=== PATIENT | male | born 1965 | race Caucasian/White ===

== ENCOUNTER 2021-03-21 12:12 | Inpatient (IN) ==
[2021-03-21 13:33] LABS: BASOPHILS % (AUTO) 0.4 % (0.2-1.0); EOSINOPHILS # (AUTO) 0.2 x10^3/uL (0.0-0.2); EOSINOPHILS % (AUTO) 1.5 % (0.9-2.9); HEMATOCRIT 37.4 % (42.0-54.0); LYMPHOCYTES # (AUTO) 1.9 X10^3/uL (1.3-2.9); MEAN CORPUSCULAR HEMOGLOBIN 30.9 pg (27.0-34.0); MEAN CORPUSCULAR HGB CONC 34.8 g/dL (33.0-35.0); MEAN CORPUSCULAR VOLUME 88.6 fL (80.0-100.0); MEAN PLATELET VOLUME 7.1 fL (7.4-11.0); MONOCYTES # (AUTO) 0.7 x10^3/uL (0.3-0.8); MONOCYTES % (AUTO) 5.5 % (0.0-13.0); NEUTROPHILS # (AUTO) 9.3 x10^3/uL (2.2-4.8); NEUTROPHILS % (AUTO) 76.6 % (42.0-75.0); PLATELET COUNT 434 X10^3/uL (150.0-450.0); RED BLOOD COUNT 4.22 X10^6/uL (4.7-6.0); RED CELL DISTRIBUTION WIDTH 13.5 % (11.6-16.5); WHITE BLOOD COUNT 12.1 X10^3/uL (3.6-10.0)
[2021-03-21 13:40] LABS: BLOOD UREA NITROGEN 14 mg/dL (7-18); CALCIUM 8.9 mg/dL (8.5-10.1); CARBON DIOXIDE 25.8 mmol/L (21-32); CHLORIDE 94 mmol/L (98-107); CREATININE 0.93 mg/dL (0.70-1.30); SODIUM 131 mmol/L (136-145); eGFR NON BLACK RACES > 60 (>60)
[2021-03-21] MEDS ORDERED: NS 100 ML IV 100 ML ONE (14:03)
[2021-03-21] MEDS: LR 1000 ML IV 1,000 ML IV SCH (15:37)
[2021-03-21] MEDS: ZOSYN VIAL 3.375 GRAMS 3.375 G in NS 100 ML IV + SPIKE MINIBAG* 100 ML IV SCH ×3 (15:37→21:46)
--- NOTE | 2021-03-21 16:09 | CT ---
CT angiogram abdomen and pelvis with and without contrastCT angiogram bilateral lower extremity dinah with and without contrast runoffIndication: Left foot gangreneTECHNIQUEHelical images through the abdomen, pelvis and bilateral lower extremities before and after IV contrast per protocol. Coronal and sagittal reformats provided. MIP images provided.FINDINGS: Left foot great toe MTP joint DJD and advanced midfoot DJD with postsurgical change from tibiotalar effusion noted. Mild spine degenerative changes noted, with disc bulge at L1-L2 causing at least moderate spinal canal stenosis.Limited images through the lower chest show coronary calcifications.Noncontrast imaging: Aortic and branch vessel plaque noted with bilateral aortoiliac stents noted. Solid organs appear normal on noncontrast imaging.Postcontrast imaging: Abdomen: The liver, gallbladder, spleen, pancreas and adrenal glands are normal. Small duodenal diverticulum noted.Kidneys show no hydroureteronephrosis. The stomach and small bowel are normal. There is no acute colonic abnormality identified. Appendix not convincingly demonstrated.Pelvis: Urinary bladder, rectum and prostate gland are normal.Lower extremity soft tissues demonstrate no large peripherally enhancing collection, with ankle joint DJD partially visualized on the left greater than right. [id number] imaging is limited for further characterization, but appears to be gas at the tibiotalar joint medially on coronal image 50 of series 9 and correlate clinically for signs of infection. Lateral malleolus approaches the skin on coronal image 61 without specific evidence of osteomyelitis, but correlate clinically for developing ulcer.Angiogram: Lower thoracic aorta shows scattered calcifications without aneurysm. There is probably 75 percent or greater stenosis of the celiac axis on sagittal image 49 and axial image 24. SMA is patent at the origin with few scattered calcifications.Right renal artery is patent with mild plaque at their origin, probably less than 50 percent stenosis.Two accessory right mid and lower pole renal artery seen on coronal image 37-40, generally patent. Left main renal artery is patent at the origin with about 20 percent narrowing from plaque.The MEENAKSHI is patent.Infrarenal abdominal aortic is moderately narrowed due to soft and calcified plaque.Patent bilateral iliac stents are noted on axial images 62-76. The right iliac stent appears grossly patent, with minimal narrowing at the origin on coronal image 40. The external iliac artery is patent. Plaque is seen at the right internal iliac artery origin, possibly nearly completely occluded on axial images 75 and coronal images 40 and 41.The left iliac stent is patent and with the left external iliac artery. The left common iliac stent terminates above the bifurcation, with moderate plaque seen below the stent, causing probably 50-70 percent narrowing on axial image 79. Greater than 50 percent narrowing of the proximal internal iliac artery is likely.Right lower extremity: The right common femoral artery and profunda branches are patent. The superficial femoral artery is patent. The popliteal artery is patent. The anterior tibial artery, posterior tibial artery and peroneal trunk are patent with three-vessel runoff to the ankle. Dorsalis pedis and plantar arch are patent.Left lower extremity: The left common femoral artery shows scattered calcifications with about 30 percent narrowing on axial image 121. Profunda branches are patent. Scattered calcifications are seen in the proximal left SFA with probably 50 percent narrowing on axial image 127. Below this level, the SFA is generally patent, with scattered plaque seen just above the popliteal artery causing probably 50 percent narrowing on axial image 223. Popliteal artery is patent. Anterior tibial artery and posterior tibial arteries are patent. Peroneal trunk is patent. Posterior tibial artery provides flow to the plantar arch. Dorsalis pedis may be occluded on axial image 164, with distal flow to the dorsal foot provided via plantar arch collaterals.There is soft tissue swelling and edema over the foot dorsally and laterally.Impression:1. Scattered aortoiliac plaque with left common femoral artery and superficial femoral artery narrowing as above. The dorsalis pedis the left foot may be occluded just below the ankle with posterior tibial artery providing good flow to the plantar arch and collateral vessel providing flow dorsally to the left foot.2. Bilateral iliac stents, with probable significant stenosis at the distal left common iliac artery just above the bifurcation.3. Nearly occluded right internal iliac artery.4. Stenotic celiac axis, with other vessel narrowings as above.5. No acute intra-abdominal or pelvic abnormality.6. Soft tissue swelling about the left foot and postsurgical/degenerative change of the ankle with gas seen at the tibiotalar joint. Infection is not excluded. Further radiographic and dedicated foot imaging is recommended to better evaluate.Electronically signed by: RAQUEL SCHROEDER (Mar 21, 2021 16:06:59)
[2021-03-21 16:36] VITALS: BMI 24.3
[2021-03-21] MEDS: LOPID PO SCH (17:04)
[2021-03-21] MEDS: SNACK - Diabetic Appropriate PO SCH (19:22)
[2021-03-21] MEDS: HumuLIN R SUBCUT PRN (20:25)
[2021-03-22] MEDS: LR 1000 ML IV 1,000 ML IV SCH ×2 (03:15→14:58)
[2021-03-22] MEDS: LOPID PO SCH ×2 (05:37→17:16)
[2021-03-22] MEDS: ZOSYN VIAL 3.375 GRAMS 3.375 G in NS 100 ML IV + SPIKE MINIBAG* 100 ML IV SCH ×3 (05:37→21:35)
[2021-03-22] MEDS ORDERED: ZESTRIL TAB 20 MG ONE ×2 (08:57→20:35)
[2021-03-22] MEDS ORDERED: ZESTRIL TAB 20 MG PO SCH (09:00)
[2021-03-22] MEDS: ASPIRIN EC 81 MG PO SCH (09:02)
[2021-03-22] MEDS: LIPITOR TAB 80 MG PO SCH (09:03)
[2021-03-22] MEDS: NORVASC TAB 5 MG PO SCH (09:03)
[2021-03-22] MEDS: TOPROL XL PO SCH (09:03)
[2021-03-22] MEDS: PERCOCET TAB 5/325 MG PO PRN ×3 (09:06→21:35)
--- NOTE | 2021-03-22 11:33 | DR.CONSULT ---
CONSULT Consultation for Day of: Date: 03/22/21 Chief Complaint Chief Complaint: Left foot gangrene Allergies Allergies Allergy/AdvReac Type Severity Reaction Status Date / Time codeine Allergy Unknown Verified 03/21/21 13:22 History of Present Illness History of Present Illness: Mr. Dorsey is a 55 year old male who is known to our practice. He has a Hx of PVD and prior vascular procedures in [place]. 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 He has minimal pain today. Patient has also been seen by Dr. Lord. Patient also with a Hx of smoking 1/2 pack a day. He denies any f/c/n/v/sob/calf pain. Past Surgical History Surgical History: Angioplasty/Stents, Ortho Surgery and Other Family History Family Medical History: Diabetes Mellitus and [place] Social History Does patient currently use any type of tobacco product: Yes Have you used tobacco products in the last 12 months: Yes Type of Tobacco Use: Cigarettes How many years tobacco product used: 40 Packs per day or dips/chews per day: 1/2 Does any household member use tobacco: No Alcohol Use: None Drug Use: None Medications Home Medications: codeine Allergy (Unknown, Verified 03/21/21 13:22) CONTINUE taking the following medications amlodipine 5 mg PO DAILY 03/21/21 [History] amoxicillin-pot clavulanate 1 tab PO BID 03/21/21 [History] aspirin 81 mg PO DAILY 03/21/21 [History] atorvastatin 80 mg PO DAILY 03/21/21 [History] clopidogrel 75 mg PO DAILY 03/21/21 [History] gemfibrozil 600 mg PO BID 03/21/21 [History] lisinopril 20 mg PO BID 03/21/21 [History] oxycodone-acetaminophen 1 tab PO Q6H PRN 03/21/21 [History] tizanidine 4 mg PO HS 03/21/21 [History] tramadol 50 mg PO Q8H PRN 03/21/21 [History] Physical Exam Vital Signs: Temperature 98.3 F Pulse Rate [Right Brachial] 66 Respiratory Rate 20 Blood Pressure [Right Arm] 159/71 O2 Sat by Pulse Oximetry 98 Plan (1) PVD (peripheral vascular disease): Status: Acute Plan: Mr. Dorsey is a 55 year old male with PVD. Left foot with dry gangrene. Stable and dry. CTA with evidence of vascular disease. He is with VSS and NAD. Plan: WB as tolerated on the left Continue with betadine paint to the left foot. Vascular following appreciated recs. Discussed with Dr. Lord. Tentative plan for TMA later in the week Will monitor. Please do not hesitate to contact me with questions or concerns. Ky Baldwin, [facility] [phone]
--- NOTE | 2021-03-22 15:52 | NOTE.SOAP ---
Soap Note Note for Day of Date of Exam: 03/21/21 Subjective Data Subjective Data: Patient had acute ischemic left leg approximately 2 weeks ago who had treatment 1 week ago with b/l iliac stenting . Seen in my office with continued cellulitis of the distal left foot with dry gangrene of the great toe, second toe and third toe. Admitted for IV antibiotics, further evaluation , ultimately will require left transmetatarsal amputation. VTA shows excellent result of the bilateral iliac stenting. CTA also shows mild disease of the left superficial femoral artery with run off by the left can repairer tool artery with an occluded dorsalis pedis at the ankle. Objective Data Temperature: 98.1 F Pulse Rate: 64 Respiratory Rate: 20 Blood Pressure: 141/67 O2 Sat by Pulse Oximetry: 99 Objective Data: CTA results as above. Triphasic ultrasound signal of the left posterior tibial artery at the ankle. Redness of the dorsal left foot improving. CTA also suggests a small amount of air I want the time to get to finish this one. around the screw in the left ankle from a previous surgery. . Assessment Assessment: Acute ischemic left leg treated at another location. Mild distal disease of the left superficial femoral artery with runoff Via the left posterior tibial artery with triphasic Flow by ultrasound. Plan Plan: Continue IV antibiotics. 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
[2021-03-22] MEDS: SNACK - Diabetic Appropriate PO SCH (19:55)
[2021-03-22] MEDS: ZESTRIL TAB 20 MG PO SCH (20:42)
[2021-03-22] MEDS: HumuLIN R SUBCUT PRN (20:43)
[2021-03-23] MEDS: PERCOCET TAB 5/325 MG PO PRN ×4 (02:18→23:15)
[2021-03-23] MEDS: LR 1000 ML IV 1,000 ML IV SCH ×4 (02:18→16:52)
[2021-03-23] MEDS ORDERED: ZESTRIL TAB 20 MG ONE ×2 (09:03→19:52)
[2021-03-23] MEDS: LIPITOR TAB 80 MG PO SCH (09:22)
[2021-03-23] MEDS: ASPIRIN EC 81 MG PO SCH (09:22)
[2021-03-23] MEDS: ZESTRIL TAB 20 MG PO SCH ×2 (09:22→20:20)
[2021-03-23] MEDS: NORVASC TAB 5 MG PO SCH (09:23)
[2021-03-23] MEDS: TOPROL XL PO SCH (09:23)
--- NOTE | 2021-03-23 10:43 | NOTE.SOAP ---
Soap Note Note for Day of Date of Exam: 03/23/21 Subjective Data Subjective Data: Mr. Dorsey is a 55 year old male with PVD. He s/p revascularization with stenting about 1 week ago. He is doing well with minimal pain. No issues over night. He denies any f/c/n/v/sob/calf pain. Objective Data Objective Data: Left foot with dry gangrene to the hallux, 2nd and 3rd toes. They do not appear viable. The skin overall is tight and atrophic. No edema and minimal erythema noted around ischemic areas. DP and PT pulses are not palpable on the left. Sensation is intact to light touch. Patient with left ankle contracture and varus deformity of the ankle. Assessment Assessment: Mr. Dorsey is a 55 year old male with PVD. Dry gangrenous 1st, 2nd, and 3rd digits on the left. They are not viable. He is with VSS and NAD. Plan Plan: Continue with daily betadine paint to the gangrenous digits. WB as tolerated. Discussed with the patient at length that he would benefit from a transmetatarsal amputation. Discussed that the hallux, 2nd and 3rd digits are not viable. From a biomechanical standpoint if we leave the 4th and 5th rays intact they will breakdown and he is at risk for developing further infection. He related understanding and would like to proceed with TMA. Vascular following appreciate recs. Continue abx. Will monitor Please do not hesitate to contact me with questions or concerns Ky Baldwin [facility] [phone]
[2021-03-23] MEDS: ZANAFLEX PO PRN ×2 (13:42→23:15)
[2021-03-23] MEDS: ZOSYN VIAL 3.375 GRAMS 3.375 G in NS 100 ML IV + SPIKE MINIBAG* 100 ML IV SCH ×2 (14:00→22:10)
--- NOTE | 2021-03-23 14:57 | NOTE.SOAP ---
Soap Note Note for Day of Date of Exam: 03/23/21 Subjective Data Subjective Data: Redness continues to improve . Appreciate input from [facility] Objective Data Temperature: 98.3 F Pulse Rate: 64 Respiratory Rate: 18 Blood Pressure: 169/77 O2 Sat by Pulse Oximetry: 99 Objective Data: Redness left foot nearly resolved . Warm feet b/l. Assessment Assessment: S/P b/l iliac stenting for CLTI, gangrene left toes (great, second and third) Plan Plan: Continue IV antibiotics and tentatively for left TMA this Wednesday.
[2021-03-23] MEDS: LOPID PO SCH (16:50)
[2021-03-23] MEDS: HumuLIN R SUBCUT PRN (20:22)
[2021-03-23] MEDS: SNACK - Diabetic Appropriate PO SCH (21:00)
[2021-03-24] MEDS: LR 1000 ML IV 1,000 ML IV SCH ×2 (02:54→06:04)
[2021-03-24] MEDS: ZOSYN VIAL 3.375 GRAMS 3.375 G in NS 100 ML IV + SPIKE MINIBAG* 100 ML IV SCH ×3 (05:36→22:56)
[2021-03-24] MEDS: LOPID PO SCH ×2 (05:36→16:25)
[2021-03-24] MEDS ORDERED: ZESTRIL TAB 20 MG ONE ×2 (08:12→19:38)
[2021-03-24] MEDS: ASPIRIN EC 81 MG PO SCH (08:23)
[2021-03-24] MEDS: LIPITOR TAB 80 MG PO SCH (08:24)
[2021-03-24] MEDS: TOPROL XL PO SCH (08:24)
[2021-03-24] MEDS: NORVASC TAB 5 MG PO SCH (08:24)
[2021-03-24] MEDS: ZESTRIL TAB 20 MG PO SCH ×2 (08:29→20:25)
[2021-03-24] MEDS ORDERED: LOVENOX INJ 40 MG SYR SC SCH (09:00)
--- NOTE | 2021-03-24 10:15 | NOTE.SOAP ---
Soap Note Note for Day of Date of Exam: 03/24/21 Subjective Data Subjective Data: Redness nearly resolved left foot. C/O diarrhea. Objective Data Temperature: 98.3 F Pulse Rate: 72 Respiratory Rate: 20 Blood Pressure: 168/74 O2 Sat by Pulse Oximetry: 100 Objective Data: as above . Assessment Assessment: Gangrene left foot. Plan Plan: Continue IV antibiotics, plan left TMA on WED. Heparin lock IVFs continue IV antibiotics. Check stool for C.difficile
[2021-03-24] MEDS: PERCOCET TAB 5/325 MG PO PRN ×3 (11:09→23:16)
[2021-03-24] MEDS: SNACK - Diabetic Appropriate PO SCH (20:00)
[2021-03-24] MEDS: HumuLIN R SUBCUT PRN (20:29)
[2021-03-24] MEDS: ZANAFLEX PO PRN (23:16)
[2021-03-25] MEDS: LOPID PO SCH ×3 (05:41→15:53)
[2021-03-25] MEDS: ZOSYN VIAL 3.375 GRAMS 3.375 G in NS 100 ML IV + SPIKE MINIBAG* 100 ML IV SCH ×4 (05:41→21:02)
[2021-03-25] MEDS ORDERED: ZESTRIL TAB 20 MG ONE ×2 (08:01→19:55)
[2021-03-25] MEDS: ASPIRIN EC 81 MG PO SCH (08:27)
[2021-03-25] MEDS: ZESTRIL TAB 20 MG PO SCH ×2 (08:27→20:22)
[2021-03-25] MEDS: LIPITOR TAB 80 MG PO SCH (08:27)
[2021-03-25] MEDS: NORVASC TAB 5 MG PO SCH (08:27)
[2021-03-25] MEDS: TOPROL XL PO SCH (08:28)
[2021-03-25] MEDS: PERCOCET TAB 5/325 MG PO PRN ×2 (09:34→22:26)
[2021-03-25] MEDS: ZANAFLEX PO PRN ×2 (09:34→22:30)
[2021-03-25] MEDS: HumuLIN R SUBCUT PRN ×2 (11:19→15:59)
[2021-03-25] MEDS: SNACK - Diabetic Appropriate PO SCH (20:00)
--- NOTE | 2021-03-25 23:37 | NOTE.SOAP ---
Soap Note Note for Day of Date of Exam: 03/25/21 Objective Data Temperature: 98.7 F Pulse Rate: 60 Respiratory Rate: 20 Blood Pressure: 169/94 O2 Sat by Pulse Oximetry: 100 Objective Data: Redness resolved left foot. Dry gangrene great, second and third toes. diarrhea improved. C difficile titer negative . Assessment Assessment: Status Post Acute Madhavi left lower extremity. Status post bilateral iliac stenting at another location. Dry gangrene left great, second and third toes Plan Plan: four left transmetatarsal amputation tomorrow
[2021-03-26] MEDS: LOPID PO SCH ×2 (05:45→15:57)
[2021-03-26] MEDS: ZOSYN VIAL 3.375 GRAMS 3.375 G in NS 100 ML IV + SPIKE MINIBAG* 100 ML IV SCH ×3 (05:45→21:07)
[2021-03-26] MEDS ORDERED: ZESTRIL TAB 20 MG ONE ×2 (08:05→19:39)
[2021-03-26] MEDS: NORVASC TAB 5 MG PO SCH (08:38)
[2021-03-26] MEDS: TOPROL XL PO SCH (08:38)
[2021-03-26] MEDS: ZESTRIL TAB 20 MG PO SCH ×2 (08:38→20:40)
[2021-03-26] MEDS: ASPIRIN EC 81 MG PO SCH (08:38)
[2021-03-26 11:12] LABS: BASOPHILS # (AUTO) 0.1 X10^3/uL (0.0-0.1); BASOPHILS % (AUTO) 0.9 % (0.2-1.0); EOSINOPHILS # (AUTO) 0.2 x10^3/uL (0.0-0.2); EOSINOPHILS % (AUTO) 1.7 % (0.9-2.9); HEMATOCRIT 39.2 % (42.0-54.0); HEMOGLOBIN 13.6 g/dL (13.5-18.0); LYMPHOCYTES # (AUTO) 1.7 X10^3/uL (1.3-2.9); LYMPHOCYTES % (AUTO) 15.1 % (21.0-51.0); MEAN CORPUSCULAR HEMOGLOBIN 31.1 pg (27.0-34.0); MEAN CORPUSCULAR HGB CONC 34.6 g/dL (33.0-35.0); MEAN CORPUSCULAR VOLUME 89.8 fL (80.0-100.0); MEAN PLATELET VOLUME 6.9 fL (7.4-11.0); MONOCYTES # (AUTO) 0.4 x10^3/uL (0.3-0.8); NEUTROPHILS # (AUTO) 8.6 x10^3/uL (2.2-4.8); NEUTROPHILS % (AUTO) 78.3 % (42.0-75.0); PLATELET COUNT 414 X10^3/uL (150.0-450.0); RED BLOOD COUNT 4.37 X10^6/uL (4.7-6.0); RED CELL DISTRIBUTION WIDTH 13.7 % (11.6-16.5)
--- NOTE | 2021-03-26 11:16 | RAD ---
HISTORYPRE OP TOE AMPUTATIONSTUDYCHEST, 1 [id number]/2019.TECHNIQUEAP view of the chestFINDINGSThe cardiac and mediastinal contours are within normal limits. The lungs are clear without focal consolidation or segmental collapse. No pleural effusion or pneumothorax.IMPRESSIONNo acute pulmonary process.Electronically signed by: Chad Rader (Mar 26, 2021 11:14:32)
[2021-03-26 11:19] LABS: ALKALINE PHOSPHATASE 92 Units/L (46-116); ASPARTATE AMINO TRANSFERASE 19 Units/L (15-37); BLOOD UREA NITROGEN 9 mg/dL (7-18); CALCIUM 8.7 mg/dL (8.5-10.1); CARBON DIOXIDE 28.7 mmol/L (21-32); CHLORIDE 100 mmol/L (98-107); COR CA(FOR HYPOALB) 9.5 mg/dL (8.5-10.1); CREATININE 0.85 mg/dL (0.70-1.30); SODIUM 136 mmol/L (136-145); TOTAL PROTEIN 7.2 g/dL (6.4-8.2); eGFR NON BLACK RACES > 60 (>60)
[2021-03-26 11:32] LABS: ALANINE AMINOTRANSFERASE 35 Units/L (12-78)
[2021-03-26] MEDS ORDERED: ANCEF 1 GRAM IV PREMIX* 1 G/50 ML BAG IV ONE (12:48)
[2021-03-26] MEDS ORDERED: NS 1000 ML 1,000 ML ONE (12:48)
[2021-03-26] MEDS ORDERED: FENTANYL VIAL INJ 100 mcg ONE (12:55)
[2021-03-26] MEDS ORDERED: MARCAINE 0.25% INJ ONE (13:04)
[2021-03-26] MEDS ORDERED: SUPRANE ONE (13:30)
[2021-03-26] MEDS ORDERED: EPHEDRINE SULFATE INJ ONE (13:30)
[2021-03-26] MEDS ORDERED: DIPRIVAN VIAL ONE (13:30)
[2021-03-26] MEDS ORDERED: VERSED ONE (13:30)
[2021-03-26] MEDS ORDERED: ZOFRAN INJ 4 MG VIAL ONE (13:30)
[2021-03-26] MEDS ORDERED: BETADINE SOLN ONE (13:45)
[2021-03-26] MEDS ORDERED: DILAUDID INJ ONE (15:14)
[2021-03-26] MEDS ORDERED: PHENERGAN INJ 25 MG IM PRN (15:17)
[2021-03-26] MEDS ORDERED: ZOFRAN INJ 4 MG VIAL IVP PRN (15:17)
[2021-03-26] MEDS ORDERED: BENADRYL INJ 50 MG VIAL IVP PRN (15:17)
[2021-03-26] MEDS ORDERED: DILAUDID INJ IVP PRN (15:17)
[2021-03-26] MEDS ORDERED: BARHEMSYS INJ IVP PRN (15:17)
[2021-03-26] MEDS ORDERED: REGLAN INJ 10 MG VIAL IVP PRN (15:17)
[2021-03-26] MEDS: LIPITOR TAB 80 MG PO SCH (15:48)
[2021-03-26] MEDS ORDERED: DILAUDID INJ IVP ONE (17:05)
[2021-03-26] MEDS ORDERED: CATAPRES TAB 0.2 MG PO ONE (17:05)
[2021-03-26] MEDS: PERCOCET TAB 5/325 MG PO PRN (19:44)
[2021-03-26] MEDS: SNACK - Diabetic Appropriate PO SCH (20:40)
[2021-03-26] MEDS: DILAUDID INJ IVP PRN (20:40)
[2021-03-26] MEDS: HumuLIN R SUBCUT PRN (21:07)
[2021-03-27] MEDS: DILAUDID INJ IVP PRN ×2 (00:19→04:14)
[2021-03-27] MEDS: ZOSYN VIAL 3.375 GRAMS 3.375 G in NS 100 ML IV + SPIKE MINIBAG* 100 ML IV SCH ×2 (05:26→14:33)
[2021-03-27] MEDS: LOPID PO SCH (05:37)
[2021-03-27] MEDS ORDERED: ZESTRIL TAB 20 MG ONE (08:08)
[2021-03-27] MEDS: ZESTRIL TAB 20 MG PO SCH (08:46)
[2021-03-27] MEDS: LIPITOR TAB 80 MG PO SCH (08:46)
[2021-03-27] MEDS: ASPIRIN EC 81 MG PO SCH (08:46)
[2021-03-27] MEDS: TOPROL XL PO SCH (08:48)
[2021-03-27] MEDS: NORVASC TAB 5 MG PO SCH (08:48)
[2021-03-27] MEDS: PERCOCET TAB 5/325 MG PO PRN (08:58)
[2021-03-27] MEDS ORDERED: LOVENOX INJ 40 MG SYR SC SCH (09:00)
[2021-03-27 11:29] VITALS: BP 152/70
--- NOTE | 2021-03-27 12:15 | NOTE.SOAP ---
Soap Note Note for Day of Date of Exam: 03/27/21 Subjective Data Subjective Data: Mr. Dorsey is a 55 year old male who is s/p left foot transmetatarsal amputation, DOS was 03/26. He is doing well with mild pain mostly but rates a shooting pain at times that he rates at 8/10. He has been NWB. No issues over night. He denies any f/c/n/v/sob/calf pain. Assessment Assessment: Left foot dressings are clean dry and intact. No strike through. Plan Plan: Keep the dressings c/d/I. No dressing change until his first post op visit. NWB on the left foot. PT evaluation Rx's in the chart. 7 day course of abx. I am ok for discharge. Will follow pathology outpatient. He is to follow up with Dr. Meyer in one week Please do not hesitate to contact me with questions or concerns. Ky Baldwin, fellow [facility] [phone]
--- NOTE | 2021-03-27 13:13 | W.DIS.FURT ---
Summary of Discharge Discharge Summary of Date Date of Exam: 03/27/21 Admission Date Date of Admission: 03/21/21 Admission Diagnosis Hospital Course: Patient was treated several weeks ago for critical limb ischemia the left lower extremity and treated at a [facility] With bilateral iliac stenting He presented to my office with cellulitis of the left foot and dry gangrene of the great, second and third toes. . He was admitted .. Repeat CT angiogram showed excellent results of the iliac stenting with one vessel run off of the left leg by the airplane coverer tibial artery . Ultra sonography proved the posterior tibial flow to be triphasic therefore he needed no additional input of the arterial tree. He says he underwent left transmetatarsal amputation. He was treated with IV antibiotics and the cellulitis resolved .We discharged hime home on his usual medications plus Percocet 5 milligram tablets every 6 hour PRN pain, # 30 and doxycycline 100 mg BID. He will follow up with me in 1 week. 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 He will be on a scooter to keep him from bearing weight on that left foot. Vital Signs: Vital Signs (72 hours) 03/24/21 16:00 03/24/21 18:14 03/24/21 19:14 Temperature 98.5 F Pulse Rate Pulse Rate [Right Brachial] 67 Respiratory Rate 20 18 20 Blood Pressure Blood Pressure [Right Arm] 180/81 O2 Sat by Pulse Oximetry 98 03/24/21 19:59 03/24/21 23:16 03/25/21 00:00 Temperature 98.6 F 98.3 F Pulse Rate Pulse Rate [Right Brachial] 61 60 Respiratory Rate 19 18 19 Blood Pressure Blood Pressure [Right Arm] 187/81 145/65 O2 Sat by Pulse Oximetry 98 98 03/25/21 00:16 03/25/21 04:00 03/25/21 08:00 Temperature 98.7 F 97.6 F Pulse Rate Pulse Rate [Right Brachial] 58 L 70 Respiratory Rate 20 19 18 Blood Pressure Blood Pressure [Right Arm] 176/81 157/70 O2 Sat by Pulse Oximetry 99 99 03/25/21 09:34 03/25/21 10:34 03/25/21 11:53 Temperature 97.4 F L Pulse Rate Pulse Rate [Right Brachial] 58 L Respiratory Rate 20 20 18 Blood Pressure Blood Pressure [Right Arm] 142/69 O2 Sat by Pulse Oximetry 98 03/25/21 16:00 03/25/21 19:38 03/25/21 22:26 Temperature 98.1 F 98.7 F Pulse Rate Pulse Rate [Right Brachial] 65 60 Respiratory Rate 18 20 18 Blood Pressure Blood Pressure [Right Arm] 172/79 164/68 O2 Sat by Pulse Oximetry 100 99 03/25/21 23:26 03/25/21 23:37 03/26/21 00:00 Temperature 98.7 F 98.1 F Pulse Rate 60 Pulse Rate [Right Brachial] 55 L Respiratory Rate 20 20 18 Blood Pressure 169/94 Blood Pressure [Right Arm] 129/60 O2 Sat by Pulse Oximetry 100 98 03/26/21 04:00 03/26/21 08:00 03/26/21 11:53 Temperature 98.2 F 98.8 F 98.5 F Pulse Rate Pulse Rate [Right Brachial] 60 60 58 L Respiratory Rate 17 20 18 Blood Pressure Blood Pressure [Right Arm] 163/78 157/70 148/70 O2 Sat by Pulse Oximetry 99 99 100 03/26/21 14:45 03/26/21 14:50 03/26/21 14:55 Temperature 98.2 F Pulse Rate 65 64 65 Pulse Rate [Right Brachial] Respiratory Rate 16 16 16 Blood Pressure 115/63 120/65 132/71 Blood Pressure [Right Arm] O2 Sat by Pulse Oximetry 99 99 99 03/26/21 15:00 03/26/21 15:05 03/26/21 15:10 Temperature Pulse Rate 81 81 79 Pulse Rate [Right Brachial] Respiratory Rate 18 18 18 Blood Pressure 162/89 174/93 169/89 Blood Pressure [Right Arm] O2 Sat by Pulse Oximetry 97 96 97 03/26/21 15:14 03/26/21 15:15 03/26/21 15:20 Temperature Pulse Rate 81 73 Pulse Rate [Right Brachial] Respiratory Rate 16 18 18 Blood Pressure 180/94 167/89 Blood Pressure [Right Arm] O2 Sat by Pulse Oximetry 97 96 03/26/21 15:25 03/26/21 15:40 03/26/21 15:44 Temperature 97.7 F Pulse Rate Pulse Rate [Right Brachial] 77 71 Respiratory Rate 18 18 16 Blood Pressure Blood Pressure [Right Arm] 175/84 178/86 O2 Sat by Pulse Oximetry 98 97 03/26/21 15:55 03/26/21 16:10 03/26/21 16:25 Temperature 97.8 F 97.8 F 97.9 F Pulse Rate Pulse Rate [Right Brachial] 65 66 66 Respiratory Rate 18 18 18 Blood Pressure Blood Pressure [Right Arm] 176/81 180/86 189/84 O2 Sat by Pulse Oximetry 98 99 99 03/26/21 17:24 03/26/21 17:54 03/26/21 18:25 Temperature 97.9 F Pulse Rate Pulse Rate [Right Brachial] 76 Respiratory Rate 16 16 18 Blood Pressure Blood Pressure [Right Arm] 165/75 O2 Sat by Pulse Oximetry 99 03/26/21 19:25 03/26/21 19:44 03/26/21 20:25 Temperature 98.8 F 98.2 F Pulse Rate Pulse Rate [Right Brachial] 69 66 Respiratory Rate 20 16 20 Blood Pressure Blood Pressure [Right Arm] 140/65 141/66 O2 Sat by Pulse Oximetry 99 99 03/26/21 20:40 03/26/21 20:44 03/26/21 21:10 Temperature Pulse Rate Pulse Rate [Right Brachial] Respiratory Rate 16 16 16 Blood Pressure Blood Pressure [Right Arm] O2 Sat by Pulse Oximetry 03/27/21 00:00 03/27/21 00:19 03/27/21 00:49 Temperature 97.5 F L Pulse Rate Pulse Rate [Right Brachial] 64 Respiratory Rate 20 16 20 Blood Pressure Blood Pressure [Right Arm] 124/64 O2 Sat by Pulse Oximetry 96 03/27/21 04:00 03/27/21 04:14 03/27/21 04:44 Temperature 98.1 F Pulse Rate Pulse Rate [Right Brachial] 63 Respiratory Rate 20 20 20 Blood Pressure Blood Pressure [Right Arm] 118/60 O2 Sat by Pulse Oximetry 100 03/27/21 08:00 03/27/21 08:58 03/27/21 09:58 Temperature 97.1 F L Pulse Rate Pulse Rate [Right Brachial] 68 Respiratory Rate 18 20 20 Blood Pressure Blood Pressure [Right Arm] 136/68 O2 Sat by Pulse Oximetry 98 03/27/21 11:29 Temperature 98.4 F Pulse Rate Pulse Rate [Right Brachial] 62 Respiratory Rate 18 Blood Pressure Blood Pressure [Right Arm] 152/70 O2 Sat by Pulse Oximetry 96 Labs: Laboratory Last Values WBC 11.0 X10^3/uL (3.6-10.0) H 03/26/21 11:00 RBC 4.37 X10^6/uL (4.7-6.0) L 03/26/21 11:00 Hgb 13.6 g/dL (13.5-18.0) 03/26/21 11:00 Hct 39.2 % (42.0-54.0) L 03/26/21 11:00 MCV 89.8 fL (80.0-100.0) 03/26/21 11:00 MCH 31.1 pg (27.0-34.0) 03/26/21 11:00 MCHC 34.6 g/dL (33.0-35.0) 03/26/21 11:00 RDW 13.7 % (11.6-16.5) 03/26/21 11:00 Plt Count 414 X10^3/uL (150.0-450.0) 03/26/21 11:00 MPV 6.9 fL (7.4-11.0) L 03/26/21 11:00 Neut % (Auto) 78.3 % (42.0-75.0) H 03/26/21 11:00 Lymph % (Auto) 15.1 % (21.0-51.0) L 03/26/21 11:00 Grainger % (Auto) 4.0 % (0.0-13.0) 03/26/21 11:00 Eos % (Auto) 1.7 % (0.9-2.9) 03/26/21 11:00 Baso % (Auto) 0.9 % (0.2-1.0) 03/26/21 11:00 Neut # (Auto) 8.6 x10^3/uL (2.2-4.8) H 03/26/21 11:00 Lymph # (Auto) 1.7 X10^3/uL (1.3-2.9) 03/26/21 11:00 Grainger # (Auto) 0.4 x10^3/uL (0.3-0.8) 03/26/21 11:00 Eos # (Auto) 0.2 x10^3/uL (0.0-0.2) 03/26/21 11:00 Baso # (Auto) 0.1 X10^3/uL (0.0-0.1) 03/26/21 11:00 Absolute Nucleated RBC 0.1 /100WBC 03/26/21 11:00 Sodium 136 mmol/L (136-145) 03/26/21 11:00 Corrected Sodium TNP 03/26/21 11:00 Potassium 4.1 mmol/L (3.5-5.1) 03/26/21 11:00 Chloride 100 mmol/L (98-107) 03/26/21 11:00 Carbon Dioxide 28.7 mmol/L (21-32) 03/26/21 11:00 BUN 9 mg/dL (7-18) 03/26/21 11:00 Creatinine 0.85 mg/dL (0.70-1.30) 03/26/21 11:00 Est GFR (MDRD) Af Amer > 60 (>60) 03/26/21 11:00 Est GFR (MDRD) Non-Af > 60 (>60) 03/26/21 11:00 Glucose 106 mg/dL (65-99) H 03/26/21 11:00 POC Glucose (mg/dL) 140 mg/dL (65-99) H 03/27/21 11:36 Calcium 8.7 mg/dL (8.5-10.1) 03/26/21 11:00 Corrected Calcium 9.5 mg/dL (8.5-10.1) 03/26/21 11:00 Total Bilirubin 0.30 mg/dL (0.2-1.0) 03/26/21 11:00 AST 19 Units/L (15-37) 03/26/21 11:00 ALT 35 Units/L (12-78) 03/26/21 11:00 Alkaline Phosphatase 92 Units/L (46-116) 03/26/21 11:00 Total Protein 7.2 g/dL (6.4-8.2) 03/26/21 11:00 Albumin 3.0 g/dL (3.4-5.0) L 03/26/21 11:00 Globulin 4.2 g/dL (2.5-4.5) 03/26/21 11:00 Albumin/Globulin Ratio 0.7 Ratio (1.1-2.1) L 03/26/21 11:00 Stl C. diff Tox B Gene Negative (NEGATIVE) 03/24/21 10:15 Stl C. diff [id number] Presumptive negative (NEGATIVE) 03/24/21 10:15 SARS-CoV-2 (PCR) Negative (NEGATIVE) 03/21/21 13:19 Influenza Type A (PCR) Negative (NEGATIVE) 03/21/21 13:19 Influenza Type B (PCR) Negative (NEGATIVE) 03/21/21 13:19 RSV (PCR) Negative (NEGATIVE) 03/21/21 13:19 Tissue Pathology To follow 03/26/21 14:10 Reason For Visit: GANGRENE LEFT LEG Discharge Date Discharge Date: 03/27/21 Discharge Diagnosis All Active Problems (Updated 03/22/21 @ 11:29 by Ky Baldwin) PVD (peripheral vascular disease) (Acute) Plan of Treatment: Continue with present treatment and follow up plan. Pt is to keep follow up appointment as instructed and take medications as ordered. Discharge Medications Discharge Medications: codeine Allergy (Unknown, Verified 03/21/21 13:22) CONTINUE taking the following medications amlodipine 5 mg PO DAILY 03/21/21 [History] amoxicillin-pot clavulanate 1 tab PO BID 03/21/21 [History] aspirin 81 mg PO DAILY 03/21/21 [History] atorvastatin 80 mg PO DAILY 03/21/21 [History] clopidogrel 75 mg PO DAILY 03/21/21 [History] gemfibrozil 600 mg PO BID 03/21/21 [History] lisinopril 20 mg PO BID 03/21/21 [History] oxycodone-acetaminophen 1 tab PO Q6H PRN 03/21/21 [History] tizanidine 4 mg PO HS 03/21/21 [History] tramadol 50 mg PO Q8H PRN 03/21/21 [History] New Prescriptions doxycycline monohydrate 100 mg PO BID #20 cap 03/27/21 [Rx] Follow up and Referral Follow Up: 1 Week Discharge Disposition Assessment: stable, improving Discharge Disposition: home, Discharge Condition: stable Discharge Plan Discharge Plan Hospital Course: Patient was treated several weeks ago for critical limb ischemia the left lower extremity and treated at a [facility] With bilateral iliac stenting He presented to my office with cellulitis of the left foot and dry gangrene of the great, second and third toes. . He was admitted .. Repeat CT angiogram showed excellent results of the iliac stenting with one vessel run off of the left leg by the airplane coverer tibial artery . Ultra sonography proved the posterior tibial flow to be triphasic therefore he needed no additional input of the arterial tree. He says he underwent left transmetatarsal amputation. He was treated with IV antibiotics and the cellulitis resolved .We discharged hime home on his usual medications plus Percocet 5 milligram tablets every 6 hour PRN pain, # 30 and doxycycline 100 mg BID. He will follow up with me in 1 week. 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 He will be on a scooter to keep him from bearing weight on that left foot. Patient Disposition: 01 HOME, SELF-CARE Condition: Stable Health Concerns: Post Hospitalization: new medications and changes needed to prevent readmission or further decline. Pt educated and given instructions on all concerns. Plan of Treatment: Continue with present treatment and follow up plan. Pt is to keep follow up appointment as instructed and take medications as ordered. Assessment: stable, improving Prescription drug monitoring program results: PDMP reviewed and no concerns identified Prescriptions: New doxycycline monohydrate 100 mg capsule 100 mg PO BID Qty: 20 RF: 0 Continued atorvastatin 80 mg tablet 80 mg PO DAILY RF: 0 tizanidine 4 mg tablet 4 mg PO HS RF: 0 lisinopril 20 mg tablet 20 mg PO BID RF: 0 clopidogrel 75 mg tablet 75 mg PO DAILY RF: 0 amlodipine 5 mg tablet 5 mg PO DAILY RF: 0 aspirin 81 mg tablet,delayed release (DR/EC) 81 mg PO DAILY RF: 0 tramadol 50 mg tablet 50 mg PO Q8H PRN (Reason: Pain) RF: 0 oxycodone-acetaminophen 5-325 mg tablet 1 tab PO Q6H PRN (Reason: Pain) RF: 0 gemfibrozil 600 mg tablet 600 mg PO BID RF: 0 amoxicillin-pot clavulanate 875-125 mg tablet 1 tab PO BID RF: 0 Follow ups/Referrals Follow ups/Referrals: Urmila Mcgowan [Primary Care Provider] - 1 WEEK Wilfrido Meyer [CONSULTING PHYSICIAN] - 04/03/21 9:30 am Janak Lord [STAFF PHYSICIAN] - 1 WEEK Instructions Instructions: Living With an Amputation, Gangrene, Phantom Limb Pain, Traumatic Toe Amputation, Diabetic Neuropathy, Preventing Diabetes Mellitus Complications Stand Alone Forms: Excuse From Work or School, Precautions for KACEY, [facility], Patient Portal, Social Distancing
== END 2021-03-27 14:30 | disposition home or self-care (01) | DRG 240 ==
LOC: MED/SURG 12:40
PROVIDERS: ADMIT Surgery; ATTEND Surgery
DX: Z95.1 Presence of aortocoronary bypass graft; I70.262 Atherosclerosis of native arteries of extremities with gangrene, left leg; Z20.822 Contact with and (suspected) exposure to COVID-19; I25.9 Chronic ischemic heart disease, unspecified; L03.116 Cellulitis of left lower limb; Z98.62 Peripheral vascular angioplasty status; I10 Essential (primary) hypertension; E11.51 Type 2 diabetes mellitus with diabetic peripheral angiopathy without gangrene; M24.572 Contracture, left ankle; Z87.891 Personal history of nicotine dependence; R19.7 Diarrhea, unspecified; M21.6X2 Other acquired deformities of left foot